=== PATIENT | female | born 2000 ===

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

== ENCOUNTER 2021-07-08 21:21 | Emergency (ER) | payer OTHER, MEDICAID ==
[2021-07-08 22:32] VITALS: BP 131/99
[2021-07-08] MEDS ORDERED: ONDANSETRON 4 MG/2 ML INJ IV ONE (22:56)
--- NOTE | 2021-07-08 22:59 | Emergency Department Report ---
ED HPI - General Stated complaint: 9 WEEKS NAUSEATED X1WK & ABDOMINAL PAIN Time Seen by Provider: 07/08/21 22:45 Source: patient Mode of arrival: Ambulatory Limitations: No Limitations - History of Present Illness Initial comments: 21 year old female who denies any significant past medical history and is currently 9 weeks presents to ED with complaints of lower abd pain, and vomiting. Patient states that she has been having diffuse intermittent lower abdominal pain for the past 2 days. She states that she has been nauseous and she found that she has been , but in the past few days she has been vomiting and unable to keep anything down. She denies any UTI symptoms or any abnormal vaginal bleeding. She denies any fever or chills. She states that she has not established with an [employer] as yet, but she did get an ultrasound done at a local clinic on June 22 confirming her . She is G3, P1 Ab1 Complaint: abdominal pain, other (nausea/vomiting) -: days(s) - Related Data Previous Rx's Medication Instructions Recorded Last Taken Type Ferrous Sulfate [Feosol 325 MG tab] 325 mg PO BID #60 tablet 07/22/16 Unknown Rx Vit Calc,Iron,Folic 1 each PO DAILY #30 tablet 07/22/16 Unknown Rx [ Vitamins] methOCARBAMOL [Robaxin TAB] 750 mg PO Q8H PRN #14 tablet 09/02/18 Unknown Rx Ondansetron [Zofran Odt] 4 mg PO Q8HR PRN #15 tab.rapdis 07/09/21 Unknown Rx Allergies Allergy/AdvReac Type Severity Reaction Status Date / Time No Known Allergies Allergy Verified 07/08/21 22:56 ED Review of Systems ROS: Stated complaint: 9 WEEKS NAUSEATED X1WK & ABDOMINAL PAIN Other details as noted in HPI Comment: All other systems reviewed and negative Constitutional: denies: chills, fever Eyes: denies: eye pain, eye discharge, vision change ENT: denies: ear pain, throat pain Respiratory: denies: cough, shortness of breath, SOB with exertion, SOB at rest, wheezing Cardiovascular: denies: chest pain, palpitations, dyspnea on exertion, edema, syncope, paroxysmal nocturnal dyspnea Endocrine: no symptoms reported Gastrointestinal: abdominal pain, nausea, vomiting. denies: diarrhea, constipation, hematemesis, melena, hematochezia Genitourinary: denies: urgency, dysuria, frequency, hematuria, discharge, abnormal menses, dyspareunia Musculoskeletal: denies: back pain, joint swelling, arthralgia Skin: denies: rash, lesions, change in color, change in hair/nails, pruritus Neurological: denies: headache, weakness, numbness, paresthesias, confusion, abnormal gait, vertigo Psychiatric: denies: anxiety, depression, visual hallucinations, homicidal thoughts, suicidal thoughts Hematological/Lymphatic: denies: easy bleeding, easy bruising ED Past Medical Hx - Past Medical History Hx Hypertension: No Hx Congestive Heart Failure: No Hx Diabetes: No Hx Deep Vein Thrombosis: No Hx Renal Disease: No Hx Sickle Cell Disease: No Hx Seizures: No Hx Psychiatric Treatment: Yes (depression) Hx Asthma: Yes Hx COPD: No Hx HIV: No - Surgical History Additional Surgical History: C section - Social History Smoking Status: Never Smoker Substance Use Type: None - Medications Home Medications: Home Medications Medication Instructions Recorded Confirmed Last Taken Type Ferrous Sulfate [Feosol 325 MG tab] 325 mg PO BID #60 tablet 07/22/16 Unknown Rx Vit Calc,Iron,Folic 1 each PO DAILY #30 tablet 07/22/16 Unknown Rx [ Vitamins] methOCARBAMOL [Robaxin TAB] 750 mg PO Q8H PRN #14 tablet 09/02/18 Unknown Rx Ondansetron [Zofran Odt] 4 mg PO Q8HR PRN #15 tab.rapdis 07/09/21 Unknown Rx ED Physical Exam - General General appearance: alert, in no apparent distress - Head Head exam: Present: atraumatic, normocephalic, normal inspection - Eye Eye exam: Present: normal appearance, PERRL, EOMI Pupils: Present: normal accommodation - ENT ENT exam: Present: normal exam, mucous membranes moist, TM's normal bilaterally - Neck Neck exam: Present: normal inspection, full ROM - Respiratory Respiratory exam: Present: normal lung sounds bilaterally. Absent: respiratory distress, wheezes, rales, rhonchi - Cardiovascular Cardiovascular Exam: Present: regular rate, normal rhythm, normal heart sounds - GI/Abdominal GI/Abdominal exam: Present: soft. Absent: distended, tenderness, guarding, rebound - Neurological Exam Neurological exam: Present: alert, oriented X3, CN II-XII intact, normal gait - Psychiatric Psychiatric exam: Present: normal affect, normal mood - Skin Skin exam: Present: intact ED Course Vital Signs 07/08/21 22:30 Temperature 98.3 F Pulse Rate 78 Respiratory 20 Rate Blood Pressure 131/99 O2 Sat by Pulse 100 Oximetry ED Medical Decision Making - Lab Data Result diagrams: 07/08/21 23:04 07/08/21 23:04 - Radiology Data Radiology results: report reviewed Patient: CARMEN BLACK MR #: [id number] : 2000 Acct:[id number] Age/Sex: 21 / F ADM Date: 07/08/21 Loc: ED Attending Dr: Ordering Physician: LY TURNER Date of Service: 07/08/21 Procedure(s): US OB transvaginal Accession Number(s): [id number] cc: LY TURNER ULTRASOUND OBSTETRIC INDICATION / CLINICAL INFORMATION: lower abd pain/9 weeks pre. TECHNIQUE: Transvaginal. COMPARISON: None available. FINDINGS: GESTATIONAL SAC: Well-defined oval shape and intrauterine in location. YOLK SAC: No significant abnormality. EMBRYO/FETUS: No significant abnormality. - [place]-Rump Length = 2.7 cm = 9 weeks, 4 day(s). - Heart Rate, beats per minute (if present) = 174 ADNEXA: No significant abnormality. FREE FLUID: None. ADDITIONAL FINDINGS: None. IMPRESSION: 1. Single, living intrauterine with estimated sonographic age of 9 weeks, 4 day(s). Signer Name: Ansih Chinchilla MD Signed: 07/09/2021 12:12 AM Workstation Name: [id number] Transcribed By: TL Dictated By: Anish Chinchilla MD Electronically Authenticated By: Anish Chinchilla MD Signed Date/Time: 07/09/2111 DD/ TD/TT: - Medical Decision Making 0046: Labs reviewed and unremarkable. OB ultrasound shows aMPRESSION: 1. Single, living intrauterine with estimated sonographic age of 9 weeks, 4 day(s). Patient currently sitting comfortably, talking on the phone, and she is not currently in any acute distress. She is not toxic or ill-appearing. She is neurologically intact with a normal gait. She has a nonsurgical abdominal exam. Patient was given IV fluids as well as Zofran. She has not had any vomiting during stay. She was given a p.o. challenge and was able to tolerate p.o. without any vomiting. Discussed all lab results with patient. There is no indication for any additional testing, admission or specialist consult at this time. She will be discharged home with a prescription for Zofran, encourage her to drink lots of water and she can take Tylenol as needed for pain and follow-up closely with her PCP. Patient expressed understanding of all instructions and agree with plan. Patient stable at time of discharge - Differential Diagnosis UTI, demise, dehydration, electrolyte abnormality Critical care attestation.: If time is entered above; I have spent that time in minutes in the direct care of this critically ill patient, excluding procedure time. ED Disposition Clinical Impression: Vomiting during , Abdominal pain during Disposition: 01 HOME / SELF CARE / HOMELESS Is pt being admited?: No Does the pt Need Aspirin: No Condition: Stable Instructions: Abdominal Pain During , [id number], Morning Sickness Additional Instructions: I recommend taking the zofran as prescribed to help with any nausea and vomiting. I recommend drinking lots of water and recommend small snacks throughout the day as well as brenda products to help with any nausea. He did take Tylenol as prescribed to help with pain. Follow-up closely with your PCP and your [employer]. Return to the ER if your symptoms changes or worsens in any way. Prescriptions: Ondansetron [Zofran Odt] 4 mg PO Q8HR PRN #15 tab.rapdis PRN Reason: nausea/vomiting Referrals: PRIMARY CARE, [Referring] - 3-5 Days Forms: Work/School Release Form(ED) Time of Disposition: 00:41 Print Language: WELSH
[2021-07-08 23:14] LABS: Bacteria,Urine 1+ /HPF (Negative); Bilirubin,Urine NEG (Negative); Blood,Urine NEG (Negative); Color,Urine Yellow (Yellow); Mucus,Urine FEW /HPF; Protein,Urine <15 mg/dL mg/dL (Negative); Urobilinogen,Urine < 2.0 mg/dL (<2.0)
[2021-07-08 23:49] LABS: Basophils % (Auto) 0.4 % (0.0-1.8); Eosinophils # (Auto) 0.1 K/mm3 (0.0-0.4); Eosinophils % (Auto) 0.7 % (0.0-4.3); Hematocrit 36.7 % (30.3-42.9); Lymphocytes # (Auto) 1.7 K/mm3 (1.2-5.4); Mean Corpuscular HGB Conc 35 % (30-34); Mean Corpuscular Volume 88 fl (79-97); Monocytes # (Auto) 0.4 K/mm3 (0.0-0.8); Monocytes % (Auto) 5.1 % (0.0-7.3); Platelet Count 161 K/mm3 (140-440); Red Blood Count 4.16 M/mm3 (3.65-5.03); Red Cell Distribution Width 13.2 % (13.2-15.2)
[2021-07-09 00:04] LABS: Alanine Aminotransferase 25 units/L (7-56); Albumin 4.4 g/dL (3.9-5); Blood Urea Nitrogen 7 mg/dL (7-17); Calcium 9.7 mg/dL (8.4-10.2); Hemolysis Index 2
[2021-07-09 00:05] LABS: BUN/Creatinine Ratio 14
--- NOTE | 2021-07-09 00:16 | Ultrasound Report ---
ULTRASOUND OBSTETRIC INDICATION / CLINICAL INFORMATION: lower abd pain/9 weeks pre. TECHNIQUE: Transvaginal. COMPARISON: None available. FINDINGS: GESTATIONAL SAC: Well-defined oval shape and intrauterine in location. YOLK SAC: No significant abnormality. EMBRYO/FETUS: No significant abnormality. - [place]-Rump Length = 2.7 cm = 9 weeks, 4 day(s). - Heart Rate, beats per minute (if present) = 174 ADNEXA: No significant abnormality. FREE FLUID: None. ADDITIONAL FINDINGS: None. IMPRESSION: 1. Single, living intrauterine with estimated sonographic age of 9 weeks, 4 day(s). Signer Name: Anish Chinchilla MD Signed: 07/09/2021 12:12 AM Workstation Name: [id number]
[2021-07-09] MEDS ORDERED: SODIUM CHLORIDE 0.9% 1000 ML 1,000 ML ONE (01:16)
== END 2021-07-09 03:30 | disposition home or self-care (01) ==
LOC: ED 21:21
DX: O21.9 Vomiting of pregnancy, unspecified (principal); O26.891 Other specified pregnancy related conditions, first trimester; R10.30 Lower abdominal pain, unspecified; F32.9 Major depressive disorder, single episode, unspecified; J45.909 Unspecified asthma, uncomplicated
CPT/HCPCS: 36415; 76817; 80053; 81001; 83735; 84702; 85025; 96374; 99284; J2405; J7030

== ENCOUNTER 2021-10-09 14:50 | Outpatient (CLI) | payer OTHER, MEDICAID ==
[2021-10-09 15:37] VITALS: BP 117/66
[2021-10-09] MEDS ORDERED: LACTATED RINGERS 500 ML IV ONE (16:27)
--- NOTE | 2021-10-09 18:28 | Ultrasound Report ---
ULTRASOUND OBSTETRIC LIMITED INDICATION / CLINICAL INFORMATION: wellbeing. Clinical Gestational Age (GA) in weeks, days: 22 weeks 6 days TECHNIQUE: Transabdominal. COMPARISON: 07/08/2021. FINDINGS: Limited sonographic images of the uterus and its contents. There is a single live intrauterine pregna ncy in cephalic presentation with heart rate measuring 145 bpm. Signer Name: Aurelio Lund MD Signed: 10/09/2021 6:24 PM Workstation Name: [id number]
== END 2021-10-09 17:08 | disposition home or self-care (01) ==
LOC: TRG 14:50 → APU 14:54 → TRG 17:08
PROVIDERS: ATTEND Obstetrics & Gynecology
DX: O36.8120 Decreased fetal movements, second trimester, not applicable or unspecified (principal); Z3A.22 22 weeks gestation of pregnancy
CPT/HCPCS: 59025; 76815

== ENCOUNTER 2021-12-02 12:43 | Outpatient (CLI) | payer MEDICAID ==
--- NOTE | 2021-12-02 18:04 | Ultrasound Report ---
ULTRASOUND OBSTETRIC LIMITED ULTRASOUND BIOPHYSICAL PROFILE INDICATION / CLINICAL INFORMATION: Fall. well-being. Clinical Gestational Age (GA): 30.4 weeks.days COMPARISON: 10/09/21. FINDINGS: BREATHING MOVEMENT = 2 GROSS BODY MOVEMENT = 2 TONE = 2 QUALITATIVE AMNIOTIC FLUID VOLUME = 2 TOTAL BIOPHYSICAL SCORE = 8/8 HEART RATE (beats per minute): 120 AMNIOTIC FLUID INDEX (cm) = 16.6 (normal = 7-24 cm) PRESENTATION: Cephalic. ADDITIONAL FINDINGS: The placenta is located in the anterior fundus on the right, is grade 1 and is f ree of the os. There is no evidence of abruption. IMPRESSION: 1. Biophysical Score = 8/8 2. Normal JOSEPH. No placental abnormality. Signer Name: Monico Causey MD Signed: 12/02/2021 6:00 PM Workstation Name: [email or web address]
[2021-12-02 18:23] VITALS: BP 123/64
[2021-12-02] MEDS ORDERED: LACTATED RINGERS 500 ML IV ONE (18:49)
== END 2021-12-02 18:49 | disposition home or self-care (01) ==
LOC: TRG 12:43 → APU 12:44 → TRG 18:49
PROVIDERS: ATTEND Obstetrics & Gynecology
DX: Z34.93 Encounter for supervision of normal pregnancy, unspecified, third trimester (principal); Z3A.30 30 weeks gestation of pregnancy
CPT/HCPCS: 59025; 76815; 76819

== ENCOUNTER 2022-01-06 10:19 | Outpatient (CLI) | payer OTHER, MEDICAID ==
[2022-01-06] MEDS ORDERED: LACTATED RINGERS 1,000 ML IV ONE (11:00)
[2022-01-06 11:48] LABS: Bacteria,Urine 1+ /HPF (Negative); Bilirubin,Urine NEG (Negative); Blood,Urine NEG (Negative); Calcium Oxalate Crystals,Urine 3+; Color,Urine Amber (Yellow); Mucus,Urine 3+ /HPF
[2022-01-06 12:06] LABS: Basophils % (Auto) 0.2 % (0.0-1.8); Eosinophils % (Auto) 0.2 % (0.0-4.3); Hematocrit 34.5 % (30.3-42.9); Hemoglobin 11.9 gm/dl (10.1-14.3); Lymphocytes # (Auto) 1.2 K/mm3 (1.2-5.4); Lymphocytes % (Auto) 7.6 % (13.4-35.0); Mean Corpuscular HGB Conc 35 % (30-34); Mean Corpuscular Volume 88 fl (79-97); Monocytes # (Auto) 0.6 K/mm3 (0.0-0.8); Monocytes % (Auto) 3.9 % (0.0-7.3); Platelet Count 149 K/mm3 (140-440); Red Blood Count 3.91 M/mm3 (3.65-5.03); Red Cell Distribution Width 14.2 % (13.2-15.2)
[2022-01-06 12:29] LABS: Alanine Aminotransferase 18 units/L (7-56); Albumin 3.5 g/dL (3.9-5); Blood Urea Nitrogen 10 mg/dL (7-17); Calcium 9.1 mg/dL (8.4-10.2); Hemolysis Index 6
[2022-01-06 12:33] LABS: BUN/Creatinine Ratio 20
[2022-01-06] MEDS: LACTATED RINGERS 1,000 ML IV SCH (13:01)
--- NOTE | 2022-01-06 13:30 | Ultrasound Report ---
ULTRASOUND RENAL INDICATION / CLINICAL INFORMATION: lt flank pain. COMPARISON: Renal ultrasound 12/31/2021 FINDINGS: RIGHT KIDNEY: Length = 10.2 cm. - Echogenicity: Normal. - Cortical Thickness: Normal. - Hydronephrosis: None. - Cyst / Mass: None. - Stones: None seen. LEFT KIDNEY: Length = 13.1 cm. - Echogenicity: Normal. - Cortical Thickness: Normal. - Hydronephrosis: Mild hydronephrosis. No obstructing stone or mass identified. - Cyst / Mass: None. - Stones: None seen. URINARY BLADDER: No significant abnormality. FREE FLUID: None. ADDITIONAL FINDINGS: None. IMPRESSION: 1. Mild left hydronephrosis, new from prior exam. No obstructing stone or mass identified. A ureteral stone cannot be excluded. This could be further evaluated with CT as indicated. Signer Name: Ryan Lacey MD Signed: 01/06/2022 1:25 PM Workstation Name: [employer]
--- NOTE | 2022-01-06 13:31 | Ultrasound Report ---
US OB limited, US OB BPP wo non-stress INDICATION / CLINICAL INFORMATION: abdominal pains. TECHNIQUE: Transabdominal. COMPARISON: None available. FINDINGS: Biophysical Profile: breathing movements: 2. movements: 0 posture and tone: 0 Qualitative amniotic fluid volume: 2 Heart Rate, beats per minute (if present) = 133 beats per minute position: Cephalic. Amniotic fluid index: 9.2 Placenta: Anterior, grade 2. No abruption. IMPRESSION: 1. Biophysical profile is 4 of 8. Signer Name: Juan Antonio Lewis MD Signed: 01/06/2022 1:27 PM Workstation Name: [id number]
[2022-01-06] MEDS ORDERED: ceFAZolin/NS 1 GM/50 ML 1 GM/50 ML BAG IV ONE (15:00)
[2022-01-06] MEDS ORDERED: BETAMET ACET/BETAMET NA PH 6 MG/ML INJ 5 ML MDV IM SCH (15:00)
[2022-01-06] MEDS ORDERED: ceFAZolin 1 GM VIAL IM ONE (15:00)
[2022-01-06] MEDS ORDERED: ceFAZolin 1 GM VIAL IV ONE (15:00)
--- NOTE | 2022-01-06 15:11 | History and Physical Report ---
History of Present Illness Date of examination: 01/06/22 Date of admission: 01/06/2022 Chief complaint: Back and lower abdominal pain History of present illness: 22yo EDC /14 @ 35 4/7 weeks with c/o lower abdominal and back pain. Intermittent tightening of lower abdomen. No nausea or vomitting. No LOF or VB. Positive FM. Diagnosed with a UTI 2 weeks ago. Noncompliant with UTI meds. No dysuria or increase urinary frequency. No fever or chills Past History Past Medical History: thyroid disease Past Surgical History: section Family/Genetic History: none Social history: no significant social history - Obstetrical History Expected Date of Delivery: 01/07/22 Actual Gestation: 39 Week(s) 6 Day(s) : 3 Para: 1 Spontaneous Abortions: 1 Number of Living Children: 1 Medications and Allergies Allergies Allergy/AdvReac Type Severity Reaction Status Date / Time No Known Allergies Allergy Verified 07/08/21 22:56 Home Medications Medication Instructions Recorded Confirmed Last Taken Type Ferrous Sulfate [Feosol 325 MG tab] 325 mg PO BID #60 tablet 07/22/16 Unknown Rx Vit Calc,Iron,Folic 1 each PO DAILY #30 tablet 07/22/16 Unknown Rx [ Vitamins] methOCARBAMOL [Robaxin TAB] 750 mg PO Q8H PRN #14 tablet 09/02/18 Unknown Rx Ondansetron [Zofran ODT TAB] 4 mg PO Q8HR PRN #15 tab.rapdis 07/09/21 Unknown Rx Cefdinir 300 mg PO BID 7 Days cap 12/31/21 Unknown Rx Active Meds: Active Medications Betamethasone Acet/Betameth SodPhos (Betamet Acet/Betamet Na Ph 6 Mg/Ml Inj 5 Ml Mdv) 12 mg IM Q24H RASHIDA Stop: 01/07/22 15:01 Last Admin: 01/06/22 14:09 Dose: 12 mg Lactated Ringer's (Lactated Ringers) 1,000 mls @ 125 mls/hr IV DIRECT RASHIDA Last Admin: 01/06/22 13:01 Dose: 125 mls/hr Cefazolin Sodium (Ancef/Ns 1 Gm/50 Ml) 1 gm in 50 mls @ 100 mls/hr IV ONCE ONE Stop: 01/06/22 15:29 Last Admin: 01/06/22 14:08 Dose: 100 mls/hr Morphine Sulfate (Morphine 4 Mg/1 Ml Inj) 4 mg IV ONCE ONE Stop: 01/06/22 15:05 Review of Systems Gastrointestinal: abdominal pain - Vital Signs Vital signs: Vital Signs Pulse Pulse Ox 94 H 95 01/06/22 10:27 01/06/22 10:27 Temp Pulse Resp BP Pulse Ox 97.9 F 101 H 20 105/72 97 01/06/22 10:42 01/06/22 15:03 01/06/22 10:42 01/06/22 14:56 01/06/22 15:03 - Physical Exam Lungs: Positive: Clear to auscultation Abdomen: Positive: normal appearance Genitourinary (Female): Positive: normal external genitalia - Obstetrical FHR: category 1 Cervical Dilatation: 0.5 station: high Uterine Contraction Pattern: Absent Results Result Diagrams: 01/06/22 11:40 01/06/22 11:40 Abnormal lab results 01/06/22 01/06/22 01/06/22 Range/Units 10:33 11:40 11:40 WBC 15.7 H (4.5-11.0) K/mm3 MCHC 35 H (30-34) % Lymph % (Auto) 7.6 L (13.4-35.0) % Seg Neutrophils % 88.1 H (40.0-70.0) % Seg Neutrophils # 13.8 H (1.8-7.7) K/mm3 Carbon Dioxide 20 L (22-30) mmol/L Creatinine 0.5 L (0.6-1.2) mg/dL Glucose 121 H (65-100) mg/dL Alkaline Phosphatase 161 H (35-129) units/L Albumin 3.5 L (3.9-5) g/dL Urine WBC (Auto) 12.0 H (0.0-6.0) /HPF All other labs normal. Assessment and Plan A IUP@ 35 4/7 Abdominal and Back Pain BPP 4/8 (-2 movement -2 tone) UTI P Observation [facility] Repeat BPP in 24 hours Treat UTI with Ancef D/w Dr. Martinez
[2022-01-06 15:52] LABS: Creatinine,Urine 219.6 mg/dL (0.1-20.0); Protein/Creatinine Ratio,Urine 0.22
[2022-01-06] MEDS ORDERED: MORPHINE 4 MG/1 ML INJ IV ONE (16:00)
--- NOTE | 2022-01-06 17:31 | History and Physical Report ---
History of Present Illness Date of examination: 01/06/22 Date of admission: 01/06/2022 Chief complaint: Back and lower abdominal pain History of present illness: 22yo EDC / @ 35 4/7 weeks with c/o lower abdominal and back pain. Intermittent tightening of lower abdomen. No nausea or vomitting. No LOF or VB. Positive FM. Diagnosed with a UTI 2 weeks ago. Noncompliant with UTI meds. No dysuria or increase urinary frequency. No fever or chills Past History Past Medical History: thyroid disease Past Surgical History: section Family/Genetic History: none Social history: no significant social history - Obstetrical History Expected Date of Delivery: 02/06/22 Actual Gestation: 35 Week(s) 4 Day(s) : 3 Para: 1 Hx # Term Pregnancies: 1 Spontaneous Abortions: 1 Number of Living Children: 1 Medications and Allergies Allergies Allergy/AdvReac Type Severity Reaction Status Date / Time No Known Allergies Allergy Verified 07/08/21 22:56 Home Medications Medication Instructions Recorded Confirmed Last Taken Type Ferrous Sulfate [Feosol 325 MG tab] 325 mg PO BID #60 tablet 07/22/16 Unknown Rx Vit Calc,Iron,Folic 1 each PO DAILY #30 tablet 07/22/16 Unknown Rx [ Vitamins] methOCARBAMOL [Robaxin TAB] 750 mg PO Q8H PRN #14 tablet 09/02/18 Unknown Rx Ondansetron [Zofran ODT TAB] 4 mg PO Q8HR PRN #15 tab.rapdis 07/09/21 Unknown Rx Cefdinir 300 mg PO BID 7 Days cap 12/31/21 Unknown Rx Active Meds: Active Medications Betamethasone Acet/Betameth SodPhos (Betamet Acet/Betamet Na Ph 6 Mg/Ml Inj 5 Ml Mdv) 12 mg IM Q24H RASHIDA Stop: 01/07/22 15:01 Last Admin: 01/06/22 14:09 Dose: 12 mg Lactated Ringer's (Lactated Ringers) 1,000 mls @ 125 mls/hr IV DIRECT RASHIDA Last Admin: 01/06/22 13:01 Dose: 125 mls/hr Review of Systems Gastrointestinal: abdominal pain - Vital Signs Vital signs: Vital Signs Pulse Pulse Ox 94 H 95 01/06/22 10:27 01/06/22 10:27 Temp Pulse Resp BP Pulse Ox 97.9 F 82 20 102/58 94 01/06/22 10:42 01/06/22 17:25 01/06/22 10:42 01/06/22 17:11 01/06/22 17:25 - Physical Exam Cardiovascular: Regular rate - Obstetrical FHR: category 1 Uterine Contraction Monitor Mode: External Cervical Dilatation: 0.5 Cervical Effacement Percentage: 0 station: high Uterine Contraction Pattern: Absent Results Result Diagrams: 01/06/22 11:40 01/06/22 11:40 Abnormal lab results 01/06/22 01/06/22 01/06/22 Range/Units 10:33 11:40 11:40 WBC 15.7 H (4.5-11.0) K/mm3 MCHC 35 H (30-34) % Lymph % (Auto) 7.6 L (13.4-35.0) % Seg Neutrophils % 88.1 H (40.0-70.0) % Seg Neutrophils # 13.8 H (1.8-7.7) K/mm3 Carbon Dioxide 20 L (22-30) mmol/L Creatinine 0.5 L (0.6-1.2) mg/dL Glucose 121 H (65-100) mg/dL Alkaline Phosphatase 161 H (35-129) units/L Albumin 3.5 L (3.9-5) g/dL Urine WBC (Auto) 12.0 H (0.0-6.0) /HPF Urine Creatinine (0.1-20.0) mg/dL Urine Total Protein (5-11.8) mg/dL 01/06/22 Range/Units 12:46 WBC (4.5-11.0) K/mm3 MCHC (30-34) % Lymph % (Auto) (13.4-35.0) % Seg Neutrophils % (40.0-70.0) % Seg Neutrophils # (1.8-7.7) K/mm3 Carbon Dioxide (22-30) mmol/L Creatinine (0.6-1.2) mg/dL Glucose (65-100) mg/dL Alkaline Phosphatase (35-129) units/L Albumin (3.9-5) g/dL Urine WBC (Auto) (0.0-6.0) /HPF Urine Creatinine 219.6 H (0.1-20.0) mg/dL Urine Total Protein 48 H (5-11.8) mg/dL All other labs normal. Assessment and Plan A IUP@ 35 4 Abdominal and Back Pain BPP 01/01 (-2 movement -2 tone) UTI P Observation [facility] Repeat BPP in 24 hours Treat UTI with Ancef D/w Dr. Martinez
[2022-01-07] MEDS ORDERED: OXYTOCIN DRIP 30 UNITS/500 ML BAG IV SCH (01:00)
[2022-01-07] MEDS: LACTATED RINGERS 1,000 ML IV SCH (01:01)
--- NOTE | 2022-01-07 03:54 | Ultrasound Report ---
ULTRASOUND BIOPHYSICAL PROFILE INDICATION / CLINICAL INFORMATION: well-being COMPARISON: 01/07/2020 FINDINGS: BREATHING MOVEMENT = 2 GROSS BODY MOVEMENT = 2 TONE = 2 QUALITATIVE AMNIOTIC FLUID VOLUME = 2 TOTAL BIOPHYSICAL SCORE = 05/03 JOSEPH measures 9.6 cm PRESENTATION: Cephalic. HEART RATE (beats per minute): 131 IMPRESSION: 1. biophysical profile = 05/03 Obstetrical ultrasound real-time INDICATION: well-being FINDINGS: There is a single living intrauterine gestation. This fetus is in the cephalic position. AF I is normal. heart rate is 125 bpm. The fetus weight is 2689 g Biparietal diameter measures 8.94 cm measuring 36 weeks and 1 day. The head circumference measures 31 .33 cm measuring 35 weeks and 1 day abdominal circumference measures 32 cm measuring 36 weeks and 0 d ays. The femur length measures 6.7 cm measuring 34 weeks and 3 days IMPRESSION: Single live in its uterine , as outlined above with ultrasound age of 35 weeks a nd 3 days. Signer Name: De Lundy MD Signed: 01/07/2022 3:49 AM Workstation Name: [email or web address]
[2022-01-07 07:07] VITALS: BP 116/61
== END 2022-01-07 08:02 | disposition home or self-care (01) ==
LOC: APU 10:19 → TRG 10:19 → LD 01-07 00:44 → TRG 01-07 08:02
PROVIDERS: ATTEND Obstetrics & Gynecology
DX: O99.891 Other specified diseases and conditions complicating pregnancy (principal); N13.30 Unspecified hydronephrosis; O62.9 Abnormality of forces of labor, unspecified; O23.43 Unspecified infection of urinary tract in pregnancy, third trimester; O99.283 Endocrine, nutritional and metabolic diseases complicating pregnancy, third trimester; E03.9 Hypothyroidism, unspecified; Z3A.35 35 weeks gestation of pregnancy
CPT/HCPCS: 36415; 59020; 59025; 76770; 76815; 76816; 76819; 80053; 81001; 82570; 84156; 85025; 87086; 96361; 96365; 96366; 96368; 96372; J0690; J0702; J2270; J2590; J7120; 96360

== ENCOUNTER 2022-01-07 14:57 | Outpatient (CLI) | payer OTHER, MEDICAID ==
[2022-01-07] MEDS: BETAMET ACET/BETAMET NA PH 6 MG/ML INJ 5 ML MDV IM ONE (15:42)
[2022-01-07 17:57] VITALS: BP 117/70
== END 2022-01-07 18:34 | disposition home or self-care (01) ==
LOC: TRG 14:57 → APU 14:59 → LD 17:27 → TRG 18:34
PROVIDERS: ATTEND Obstetrics & Gynecology
DX: Z34.93 Encounter for supervision of normal pregnancy, unspecified, third trimester (principal); Z3A.35 35 weeks gestation of pregnancy
CPT/HCPCS: 59025; J0702